=== PATIENT | male | born 1945 | race Caucasian/White ===

== ENCOUNTER 2016-11-02 05:18 | Inpatient (IN) ==
[2016-10-27 09:57] LABS: MANUAL DIFF NEEDED? NO; URINE MICRO REVIEW NEEDED? NO; URINE SOURCE CLEAN CATCH
[2016-10-27 10:01] LABS: BASO% 0.9 % (0.0-0.8); EOS# 0.23 X1000 (0.0-0.7); EOS% 3.5 % (0.0-10.0); HEMOGLOBIN 14.6 g/dL (14.0-18.0); IMM GRAN# 0.02 X1000 (0.0-0.04); IMM GRAN% 0.3 % (0.0-0.5); LYMPH# 2.24 X1000 (1.2-3.4); LYMPH% 34.4 % (20.5-51.1); MCH 32.5 PG (27-31); MCV 95.8 FL (81-99); MONO# 0.67 X1000 (0.11-0.59); MONO% 10.3 % (1.7-9.3); MPV 11.1 FL (7.4-10.4); NEUT% 50.6 % (42.2-75.2); PLT 201 X1000 (130-400); RBC 4.49 XMIL (4.7-6.1)
[2016-10-27 10:03] LABS: BILIRUBIN URINE NEGATIVE (NEGATIVE); BLOOD URINE NEGATIVE (NEGATIVE); COLOR YELLOW; GLUCOSE URINE NEGATIVE (NEGATIVE); LEUKOCYTES URINE NEGATIVE (NEGATIVE); NITRITE URINE NEGATIVE (NEGATIVE); PROTEIN URINE NEGATIVE (NEGATIVE); SP GRAVITY URINE 1.005; TURBIDITY URINE CLEAR (CLEAR); UROBILINOGEN URINE NORMAL (NORMAL)
[2016-10-27 10:04] LABS: UR EPITHELIAL CELLS <10 /HPF (<10); URINE BACTERIA NEGATIVE /HPF; URINE RBC <10 /HPF (<10); URINE WBC <10 /HPF (<10)
[2016-10-27 10:18] LABS: INR 1.02; PROTIME 10.7 Seconds (9.2-11.7); PTT 28.9 Seconds (22.0-36.0)
[2016-10-27 10:40] LABS: AGAP 14; BUN 13 mg/dL (8-22); CHLORIDE 97 mmol/L (98-107); COSMO 276; POTASSIUM 4.5 mmol/L (3.5-5.1); SODIUM 137 mmol/L (136-145); TCO2 26 mmol/L (25-35)
[2016-11-02] MEDS ORDERED: LR 1,000 ML ONE (06:23)
[2016-11-02] MEDS ORDERED: COLACE ONE (06:23)
[2016-11-02] MEDS ORDERED: CELEBREX ONE (06:23)
[2016-11-02] MEDS ORDERED: PEPCID ONE (06:23)
[2016-11-02] MEDS ORDERED: LYRICA ONE (06:23)
[2016-11-02] MEDS ORDERED: REGLAN ONE (06:23)
[2016-11-02] MEDS ORDERED: KEFZOL 2 GM/D5W 2 GM/50 ML IVPB ONE (06:24)
[2016-11-02] MEDS ORDERED: SENSORCAINE 0.25%/EPI 1:200,000 ONE (07:06)
[2016-11-02] MEDS ORDERED: TORADOL ONE (07:06)
[2016-11-02] MEDS ORDERED: VANCOMYCIN ONE (07:06)
[2016-11-02] MEDS ORDERED: CYKLOKAPRON 1,000 MG/NS 1,000 MG/100 ML IVPB ONE ×2 (07:06→07:07)
[2016-11-02] MEDS ORDERED: SODIUM CHLORIDE 0.9% ONE (07:06)
[2016-11-02] MEDS ORDERED: DURAMORPH ONE (07:06)
[2016-11-02] MEDS ORDERED: NEOSPORIN G.U. IRRIGANT ONE (07:07)
[2016-11-02] MEDS ORDERED: EXPAREL 1.3% ONE (07:07)
[2016-11-02] MEDS ORDERED: DIPRIVAN 1% ONE ×3 (07:08→08:54)
[2016-11-02] MEDS ORDERED: XYLOCAINE-MPF 2% ONE (07:08)
[2016-11-02] MEDS ORDERED: FENTANYL ONE (07:08)
[2016-11-02] MEDS ORDERED: VERSED ONE (07:14)
[2016-11-02] MEDS ORDERED: NORCO-10 PO PRN (07:18)
[2016-11-02] MEDS ORDERED: MORPHINE IV PRN (07:19)
[2016-11-02] MEDS ORDERED: SODIUM CHLORIDE 0.9% 10 ML ONE (08:29)
[2016-11-02] MEDS ORDERED: OFIRMEV 1000 MG/ISOTONIC SOLN 1,000 MG/100 ML BOTTLE ONE (08:29)
[2016-11-02] MEDS ORDERED: DECADRON ONE (08:30)
[2016-11-02 08:36] LABS: URINE MICRO REVIEW NEEDED? NO; URINE SOURCE CATH
[2016-11-02 08:41] LABS: BILIRUBIN URINE NEGATIVE (NEGATIVE); BLOOD URINE NEGATIVE (NEGATIVE); COLOR YELLOW; GLUCOSE URINE NEGATIVE (NEGATIVE); LEUKOCYTES URINE NEGATIVE (NEGATIVE); NITRITE URINE NEGATIVE (NEGATIVE); PROTEIN URINE 30 mg/dL (NEGATIVE); SP GRAVITY URINE 1.018; TURBIDITY URINE CLEAR (CLEAR); UROBILINOGEN URINE NORMAL (NORMAL)
[2016-11-02 08:42] LABS: UR EPITHELIAL CELLS <10 /HPF (<10); URINE BACTERIA NEGATIVE /HPF; URINE RBC <10 /HPF (<10); URINE WBC <10 /HPF (<10)
[2016-11-02] MEDS ORDERED: NS 1,000 ML ONE (10:00)
--- NOTE | 2016-11-02 10:41 | Diag Imaging Result Doc PS360 ---
KNEE 1-2 VIEWS-LEFT - 11/02/2016 INDICATION: tka TECHNIQUE: Two views COMPARISON: 10/14/2015 FINDINGS: There has been left total knee arthroplasty. Alignment is anatomic. No hardware fracture or loosening. IMPRESSION: No complication. Electronically signed by Solitario Quiñones 11/02/2016 10:38 AM
[2016-11-02] MEDS: LASIX PO SCH (12:08)
[2016-11-02] MEDS: APRESOLINE PO SCH ×2 (12:08→23:47)
[2016-11-02] MEDS: COREG PO SCH ×2 (12:09→20:45)
[2016-11-02] MEDS: ASPIRIN PO SCH (12:11)
[2016-11-02] MEDS: CELEBREX PO SCH (12:11)
[2016-11-02] MEDS: ELIQUIS PO SCH ×2 (12:11→20:45)
--- NOTE | 2016-11-02 15:23 | OPERATIVE NOTE ---
PROCEDURE DATE: 11/02/2016 PREOPERATIVE DIAGNOSIS: Degenerative joint disease, left knee. POSTOPERATIVE DIAGNOSIS: Degenerative joint disease, left knee. PROCEDURE PERFORMED: Left posterior stabilized total knee replacement. SURGEON: Vijay Scott MD. LOG SORTING SUPERVISOR: DALI Campuzano. ANESTHESIA: Spinal. COMPLICATION: None. PROCEDURE IN DETAIL: This 70-year-old male presents for a left knee replacement. Risks, benefits, and no guarantees were discussed. Patient is willing to proceed. He was taken to the operating room and satisfactory anesthesia obtained. The left knee was prepped and draped in usual sterile fashion. A time-out was taken to confirm operative site, procedure, and patient. The leg was then wrapped with an Esmarch and tourniquet inflated to 350 mmHg. A midline incision was made over the front of the knee followed by a quad tendon sparing arthrotomy. The patella was everted and resurfaced with freehand technique and sized to a size 38 medialized dome patella. The drill paddle was used to prepare for this a metal back protector placed on this and the patella subluxed laterally. The knee was then flexed and an intramedullary hole made in the distal femur and the distal femoral cutting block secured in 5 degrees of valgus. Femoral resection was then made and the femur sized to a DePuy Attune size 7 femoral component. The 4-in- 1 block was secured and the anterior, posterior, and chamfer cuts sequentially made. A notch was then placed for the posterior stabilized design using the provided notch guide. Any osteophytes were then debrided about the femur. The knee was flexed and PCL retractor placed behind the tibia to protect the neurovascular bundle. The tibial cutting block was secured with extramedullary alignment and tibial resection made. Flexion and extension gaps were noted to be slightly tight and an additional 2 mm taken off the tibia with good flexion and extension gaps. Care was taken to preserve collateral ligaments during this resection. Any remaining osteophytes were debrided. The tibia was sized to a size 7 tibial tray. Trial implants were placed and 6 mm posterior stabilized trial poly revealed good range of motion and stability of the knee. The trial implants were removed and the bony surfaces thoroughly irrigated with pulsatile lavage. Cement with a gram of vancomycin was utilized to cement a DePuy Attune size 7 rotating platform tibial tray, a size 7 left posterior stabilized femoral component, and a 38 medialized dome patella. While the cement cured excess cement was removed with a Page elevator and the joint capsule injected with Exparel for pain management. A Hemovac drain was placed. After curing of the cement, a size 7, 6 mm thick posterior stabilized rotating poly was secured in the tibial tray and the knee reduced. Final range of motion was 0-120 degrees with midline patellar tracking. The arthrotomy was copiously irrigated and closed over the drain with #1 Vicryl in the arthrotomy, 2-0 Vicryl in the subcutaneous, and skin sea on the skin edges. Sterile dressings completed the closure and the patient was recovered from anesthesia and transferred to the recovery room in stable condition. No intraoperative complications were noted. Instrument count and sponge count was correct at the time of closure. cc: Vijay Scott MD
--- NOTE | 2016-11-02 15:34 | PROGRESS NOTE ---
DATE: 11/02/2016 SUBJECTIVE DATA: The patient is awake and alert. He is laying in bed comfortably. He denies any pain. He states he has already gotten up and walked and has done well. He denies any needs. OBJECTIVE DATA: Of the left lower extremity, the dressing is clean, dry, and intact. No tenderness with palpation at present. Good range of motion although reduced. He has good sensation to the feet. Good pedal pulse. The drain is draining bloody drainage. ASSESSMENT: Status post left total knee arthroplasty. PLAN: I think Mr. Puentes is looking great. He has already been up with physical therapy. His pain is well controlled. He has iceman on now. I think we will plan on getting him out of here tomorrow with home physical therapy. Dictated by DALI Campuzano for Vijay Scott MD cc: DALI Campuzano MD
[2016-11-02] MEDS: KEFZOL 1 GM/D5W 1 GM/50 ML IVPB IV SCH ×2 (15:46→23:42)
[2016-11-02] MEDS: PERIDEX MT SCH (20:44)
[2016-11-02] MEDS: COLACE PO SCH (20:45)
[2016-11-02] MEDS: NS 1,000 ML IV SCH (20:46)
[2016-11-02] MEDS ORDERED: ZOCOR PO SCH (21:00)
[2016-11-03] MEDS: NS 1,000 ML IV SCH (04:26)
[2016-11-03 05:42] LABS: HEMATOCRIT 34.9 % (42.0-52.0); HEMOGLOBIN 11.6 g/dL (14.0-18.0)
[2016-11-03 05:53] LABS: AGAP 15; BUN 22 mg/dL (8-22); CALCIUM 8.3 mg/dL (8.8-10.2); CHLORIDE 102 mmol/L (98-107); COSMO 287; POTASSIUM 4.2 mmol/L (3.5-5.1); SODIUM 140 mmol/L (136-145); TCO2 23 mmol/L (25-35)
[2016-11-03] MEDS: CELEBREX PO SCH (08:32)
[2016-11-03] MEDS: COLACE PO SCH (08:32)
[2016-11-03] MEDS: ELIQUIS PO SCH (08:32)
[2016-11-03] MEDS: PERIDEX MT SCH (08:33)
[2016-11-03] MEDS: APRESOLINE PO SCH (08:33)
[2016-11-03] MEDS: LASIX PO SCH (08:33)
[2016-11-03] MEDS: ASPIRIN PO SCH (08:33)
[2016-11-03] MEDS: COREG PO SCH (08:33)
[2016-11-03 15:50] VITALS: BP 166/51
--- NOTE | 2016-11-04 16:44 | DISCHARGE SUMMARY ---
ADMISSION DATE: 11/02/2016 DISCHARGE DATE: 11/03/2016 ADMISSION DIAGNOSIS: Degenerative joint disease, left knee. DISCHARGE DIAGNOSIS: Degenerative joint disease. HOSPITAL COURSE: This is a 70-year-old male, who is admitted for a left knee replacement. He was taken to the operating room on 11/02/[address] Scott. After a successful total knee arthroplasty he was transferred to the recovery room. Once he was awake and alert in recovery, he was transferred to [address] [place] [address]. Mr. Puentes has had an uneventful recovery. He is doing very well. He has already been up and ambulated greater than 250 feet with minimal assistance from physical therapy. His pain is well controlled. We have started him on DVT prophylaxis. At this time he is ready for discharge. His hemoglobin and hematocrit at time of discharge 11.6 and 34.6. His vital signs at discharge are temperature 98 degrees, pulse 58, respiratory rate 18, blood pressure 166/5100% on room air. At this time he is ready for discharge. DISCHARGE DISPOSITION: We are going to get Mr. Puentes home today with physical therapy. He will continue home physical therapy until he follows up in the office with Dr. Scott. At that time, we will transition him to outpatient physical therapy. We will send him home with pain medication as well as resume his Eliquis that he was on a preoperatively for DVT prophylaxis as well. We will resume all his home medications. We have discussed with him the importance of physical therapy and to remain ambulatory. I have also educated him to call if any signs or symptoms of infection develop. FOLLOWUP: We will follow up with him in around [address] Scott. If he or his family have any questions or concerns, they are welcome to call the office. Dictated by DALI Campuzano for Vijay Scott MD cc: DALI Campuzano MD
== END 2016-11-03 17:40 | disposition home health service (06) ==
LOC: SURHOLD 05:18 → 4N 08:30
PROVIDERS: ADMIT Orthopaedic Surgery Adult Reconstructive Orthopaedic Surgery; ATTEND Orthopaedic Surgery Adult Reconstructive Orthopaedic Surgery